=== PATIENT | female | born 1965 | race Caucasian/White ===

== ENCOUNTER 2018-03-25 13:53 | Emergency (ER) | payer OTHER ==
[~2018-03-25] VITALS: Ht 152.4 cm; Wt 122.5 kg
[2018-03-25] MEDS ORDERED: MOBIC15 MG PO (14:08)
[2018-03-25] MEDS ORDERED: SYNTHROID100 MC1 PO (14:09)
[2018-03-25] MEDS ORDERED: HYDROCHLOROTH12.5 M1 PO (14:09)
[2018-03-25] MEDS ORDERED: PRINIVIL10 MG PO (14:10)
[2018-03-25] MEDS ORDERED: PROTONIX40 M1 PO (14:10)
[2018-03-25] MEDS ORDERED: ZANAFLEX4 MG PO (16:41)
[2018-03-25] MEDS ORDERED: IBUPROFEN 800800 M1 PO (16:41)
[2018-03-25] MEDS ORDERED: MEDROLDOSEPACK PO (16:41)
[2018-03-25 16:50] VITALS: BP 125/83
== END 2018-03-25 17:06 | disposition home or self-care (01) ==
LOC: M.ERS 13:53
DX: G89.29 Other chronic pain (principal); M54.31 Sciatica, right side; I10 Essential (primary) hypertension; K21.9 Gastro-esophageal reflux disease without esophagitis; F17.210 Nicotine dependence, cigarettes, uncomplicated; Z88.1 Allergy status to other antibiotic agents; Z98.890 Other specified postprocedural states; Z90.711 Acquired absence of uterus with remaining cervical stump